=== PATIENT | female | born 1990 | race African-American/Black ===

== ENCOUNTER 2019-11-12 18:33 | Emergency (ER) | payer SELFPAY ==
[~2019-11-12] VITALS: Ht 167.6 cm; Wt 60.0 kg
[2019-11-12 18:37] VITALS: BP 104/59
--- NOTE | 2019-11-12 19:37 | NUR ---
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
[2019-11-12 19:47] LABS: BASOPHILS # (AUTO) 0.03 x10^3/uL (0-0.1); BASOPHILS % (AUTO) 0 % (0-1); EOSINOPHILS # (AUTO) 0.07 x10^3/uL (0-0.4); EOSINOPHILS % (AUTO) 1 % (1-7); LYMPHOCYTES # (AUTO) 1.93 x10^3/uL (1-3.4); LYMPHOCYTES % (AUTO) 17 % (22-44); MD NO; MEAN CORPUSCULAR HEMOGLOBIN 32.5 pg (27.0-34.8); MEAN CORPUSCULAR HGB CONC 34.3 g/dL (32.4-35.8); MEAN CORPUSCULAR VOLUME 94.8 fL (80-100); MEAN PLATELET VOLUME 9.3 fL (7.4-10.4); MONOCYTES % (AUTO) 6 % (2-9); NEUTROPHILS # (AUTO) 8.54 x10^3/uL (1.8-6.8); NEUTROPHILS % (AUTO) 76 % (42-75); PLATELET COUNT 284 x10^3/uL (130-400); RED BLOOD COUNT 4.21 x10^6/uL (3.82-5.3); RED CELL DISTRIBUTION WIDTH 13.2 % (9.6-15.2)
[2019-11-12 19:54] LABS: ALANINE AMINOTRANSFERASE 17 U/L (12-78); ALBUMIN 3.7 g/dL (3.4-5.0); ANION GAP 3 mmol/L (5-15); CALCIUM 9.5 mg/dL (8.5-10.1); CHLORIDE 108 mmol/L (98-107); CREATININE 1.04 mg/dL (0.55-1.02)
[2019-11-12 19:56] LABS: ALKALINE PHOSPHATASE 74 U/L (45-117); BILIRUBIN,TOTAL 0.5 mg/dL (0.2-1.0); TOTAL PROTEIN 7.8 g/dL (6.4-8.2)
== END 2019-11-12 20:43 | disposition home or self-care (01) ==
LOC: ED 19:00
DX: F41.1 Generalized anxiety disorder (principal); R20.2 Paresthesia of skin; R53.1 Weakness
CPT/HCPCS: 36415; 71046; 80053; 85025; 93005; 99285

== ENCOUNTER 2020-03-29 15:01 | Emergency (ER) | payer MEDICAID ==
[~2020-03-29] VITALS: Ht 167.6 cm; Wt 68.1 kg
[2020-03-29 16:04] LABS: MICROSCOPIC INDICATED
[2020-03-29 16:16] LABS: MEAN CORPUSCULAR HEMOGLOBIN 31.9 pg (27.0-34.8); MEAN CORPUSCULAR HGB CONC 33.4 g/dL (32.4-35.8); MEAN CORPUSCULAR VOLUME 95.3 fL (80-100); MEAN PLATELET VOLUME 8.8 fL (7.4-10.4); PLATELET COUNT 267 x10^3/uL (130-400); RED BLOOD COUNT 4.49 x10^6/uL (3.82-5.3); RED CELL DISTRIBUTION WIDTH 13.1 % (9.6-15.2)
[2020-03-29 16:28] LABS: ALBUMIN 3.9 g/dL (3.4-5.0); ANION GAP 4 mmol/L (5-15); CALCIUM 9.2 mg/dL (8.5-10.1); CHLORIDE 109 mmol/L (98-107); CREATININE 0.97 mg/dL (0.55-1.02)
[2020-03-29 16:34] LABS: BASOPHILS # (AUTO) 0.03 x10^3/uL (0-0.1); BASOPHILS % (AUTO) 0 % (0-1); EOSINOPHILS # (AUTO) 0.04 x10^3/uL (0-0.4); EOSINOPHILS % (AUTO) 0 % (1-7); LYMPHOCYTES # (AUTO) 2.15 x10^3/uL (1-3.4); LYMPHOCYTES % (AUTO) 24 % (22-44); MD SCAN; MONOCYTES # (AUTO) 0.75 x10^3/uL (0.2-0.8); MONOCYTES % (AUTO) 8 % (2-9); NEUTROPHILS # (AUTO) 6.05 x10^3/uL (1.8-6.8); NEUTROPHILS % (AUTO) 67 % (42-75)
--- NOTE | 2020-03-29 17:24 | NUR ---
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
[2020-03-29] MEDS ORDERED: KETOROLAC 30 MG/1 ML IM ONE (18:00)
[2020-03-29] MEDS ORDERED: KETOROLAC 30 MG/1 ML ONE (18:13)
[2020-03-29 18:36] VITALS: BP 132/54
== END 2020-03-29 18:38 | disposition home or self-care (01) ==
LOC: ED 18:35
DX: N94.6 Dysmenorrhea, unspecified (principal); R10.2 Pelvic and perineal pain
CPT/HCPCS: 36415; 76830; 80048; 81001; 82040; 84703; 85025; 96372; 99284; J1885

== ENCOUNTER 2020-07-21 19:09 | Emergency (ER) | payer MEDICAID ==
[~2020-07-21] VITALS: Ht 167.6 cm; Wt 64.1 kg
--- NOTE | 2020-07-21 19:37 | NUR ---
A&o x4, answering questions appropriately. States she unintentioanlly cut R ring finger with scissors x1 hour. Small lac noted to finger pad and controlled bleeding noted under nail. No active bleeding noted. Pt states she cleaned with soap/water. Unknown date of last tetanus. (+) radial pulse to affected extremity. (+) CSM. Denies numbness/tingling. Ambulating independently, steady gait. Bed low, side rails up, call rodriguez within reach
[2020-07-21] MEDS ORDERED: LIDOCAINE-MPF 1%, 5ML ONE (19:40)
[2020-07-21] MEDS ORDERED: DIPH,PERTUSS(ACELL),TET VAC/PF 0.5 ML IM-VACC ONE ×2 (19:45→20:00)
[2020-07-21] MEDS ORDERED: LIDOCAINE-MPF 1%, 2ML ONE (19:45)
[2020-07-21] MEDS ORDERED: LIDOCAINE-MPF 1%, 5ML INFIL ONE (20:00)
--- NOTE | 2020-07-21 20:05 | NUR ---
PA at bedside suturing
[2020-07-21 20:25] VITALS: BP 104/63
== END 2020-07-21 20:32 | disposition home or self-care (01) ==
LOC: ED 20:25
DX: S61.212A Laceration without foreign body of right middle finger without damage to nail, initial encounter (principal); W26.9XXA Contact with unspecified sharp object(s), initial encounter; Y93.89 Activity, other specified; Y92.009 Unspecified place in unspecified non-institutional (private) residence as the place of occurrence of the external cause; Y99.8 Other external cause status
CPT/HCPCS: 12041; 90471; 90715; 99284

== ENCOUNTER 2021-05-19 09:29 | Emergency (ER) | payer MEDICAID ==
[~2021-05-19] VITALS: Ht 167.6 cm; Wt 59.2 kg
--- NOTE | 2021-05-19 09:53 | NUR ---
HX OF ANXIETY. ACUTE ON CHRONIC. "LIFE IS TOO MUCH RIGHT NOW. PANIC ATTACKS X 3 IN LAST FEW DAYS." ON EDGE OF PANIC ATTACK NOW NO SI/HI
[2021-05-19] MEDS ORDERED: hydrOXyzine 50MG TABLET ONE (10:30)
[2021-05-19 10:59] VITALS: BP 135/84
== END 2021-05-19 11:01 | disposition home or self-care (01) ==
LOC: ED 10:12
DX: F41.1 Generalized anxiety disorder (principal)
CPT/HCPCS: 99283; Q0177

== ENCOUNTER 2021-05-20 15:41 | Emergency (ER) | payer MEDICAID ==
[~2021-05-20] VITALS: Ht 167.6 cm; Wt 58.7 kg
[2021-05-20 15:44] VITALS: BP 127/70
[2021-05-20] MEDS ORDERED: LORazepam 1MG TABLET PO ONE (16:30)
[2021-05-20] MEDS ORDERED: LORazepam 1MG TABLET ONE (16:45)
--- NOTE | 2021-05-20 17:27 | NUR ---
Patient given discharge instructions and they have confirmed that they understand the instructions. Patient ambulatory with steady gait. NAD, all questions answered appropriately, denies additional needs at this time. No personal belongings left in room after discharge. Patient states she has ride home.
== END 2021-05-20 17:29 | disposition home or self-care (01) ==
LOC: ED 17:20
DX: F41.1 Generalized anxiety disorder (principal); Z76.0 Encounter for issue of repeat prescription; R94.31 Abnormal electrocardiogram [ECG] [EKG]
CPT/HCPCS: 93005; 99283

== ENCOUNTER 2021-06-03 09:32 | Emergency (ER) | payer MEDICAID ==
[~2021-06-03] VITALS: Ht 167.6 cm; Wt 57.8 kg
--- NOTE | 2021-06-03 09:58 | NUR ---
PT AMBULATORY TO ROOM 40 W/ C/O FEELING ANXIOUS. PT STATES HX ANXIETY AND IS CURRENTLY ON ATIVAN 1 MG PO PRN. PT STATES SHE RAN OUT OF MEDICATION AND TOOK HYDROXYZINE BUT PT DOES NOT LIKE HOW IT MAKES HER FEEL. PT STATES SHE HAS A PRIMARY MD APPT TODAY AT 1450. PT RESTING ON GURNEY. NADN. MONITORS APPLIED. VSS. WARM BLANKET PROVIDED. CALL LIGHT IN REACH.
[2021-06-03 10:08] VITALS: BP 106/59
[2021-06-03] MEDS ORDERED: LORazepam 1MG TABLET ONE (10:10)
[2021-06-03] MEDS ORDERED: LORazepam 1MG TABLET PO ONE (10:30)
== END 2021-06-03 10:34 | disposition home or self-care (01) ==
LOC: ED 09:43
DX: F41.9 Anxiety disorder, unspecified (principal)
CPT/HCPCS: 99281; 99283

== ENCOUNTER 2021-06-11 16:45 | Emergency (ER) | payer MEDICAID ==
--- NOTE | 2021-06-11 17:11 | NUR ---
CALLED FOR TRIAGE, NO ANSWER
--- NOTE | 2021-06-11 18:00 | NUR ---
CALLED FOR TRIAGE, NO ANSWER
--- NOTE | 2021-06-11 18:30 | NUR ---
CALLED FOR TRIAGE, NO ANSWER
== END 2021-06-11 18:32 | disposition left against medical advice (07) ==
LOC: ED 17:00
DX: R07.89 Other chest pain (principal); Z53.21 Procedure and treatment not carried out due to patient leaving prior to being seen by health care provider